=== PATIENT | male | born 1990 | race Caucasian/White ===

== ENCOUNTER → 2023-06-09 | Outpatient (CLI) | payer OTHER | END | disposition home or self-care (01) | LOC: RAH 13:38 | PROVIDERS: ATTEND Chiropractor | DX: I07.1 Rheumatic tricuspid insufficiency (principal); R00.1 Bradycardia, unspecified; I10 Essential (primary) hypertension; R00.0 Tachycardia, unspecified | CPT/HCPCS: 93005; 93306 ==